=== PATIENT | male | born 1935 | race Caucasian/White ===

== ENCOUNTER → 2024-02-25 14:07 | Outpatient (REF) | payer OTHER, SELFPAY | LOC: HWRCS 14:07 | PROVIDERS: ATTENDING PHYSICIAN Internal Medicine Cardiovascular Disease; FAMILY PHYSICIAN Nurse Practitioner Primary Care | DX: I35.0 Nonrheumatic aortic (valve) stenosis (principal) | CPT/HCPCS: 93306 ==